=== PATIENT | female | born 1970 | race Caucasian/White ===

== ENCOUNTER → 2016-10-12 | Outpatient (CLI) | payer OTHER ==
--- NOTE | 2016-10-15 11:17 | RADIOLOGY REPORT PS360 ---
DIG MAMM-DX UNI LT W/AVS W/CAD, US BREAST-LT COMPLETE W/AXILLA COMPARISON: 4 08/27 and 06/12/2015 INDICATION: Follow-up abnormal mammogram with indeterminate microcalcifications and asymmetric density ORDERING PHYSICIAN: Damon Preciado MD PATIENT AGE: 46 years TECHNIQUE: Spot compression views and left breast ultrasound FINDINGS: Spot compression views performed of the left breast show a cluster of benign-appearing coarse calcifications in the upper outer left breast. No suspicious calcifications apparent. No residual asymmetric density on the spot views. Left breast ultrasound: 1 cm cyst is present at 3:00 with a macrolobulated appearance. No suspicious nodules are evident. IMPRESSION: Benign findings, no evidence of malignancy BI-RADS CATEGORY: 2_Benign RECOMMENDED FOLLOWUP: Continue screening mammogram September 2017 (A letter has been sent to the patient regarding results of the study.)
== END ==
LOC: RAD 13:57
DX: R92.2 Inconclusive mammogram (principal)
CPT/HCPCS: G0206-LT